=== PATIENT | female | born 1990 | race Caucasian/White ===

== ENCOUNTER 2025-02-16 03:27 | Emergency (ER) | payer MEDICAID, SELFPAY ==
[2025-02-16 03:29] VITALS: BP 95/74; PULSE 74; RESP 18; TEMP 36.5; O2SAT 100; BMI 22.7
[2025-02-16 04:25] LABS: Absolute Lymphocyte Count 2.23 X10^3/uL (0.83-4.51); Absolute Neutrophil Count 3.9 X10^3/uL (2.0-7.7); Basophil# 0.04 X10^3/uL; Basophil% 0.6 % (0-1); Eosinophil# 0.09 X10^3/uL; Eosinophils% 1.3 % (0-5); Hematocrit 38.5 % (37-47); Hemoglobin 13.8 g/dL (12.0-15.0); Lymphocyte # 2.23 X10^3/ul (0.83-4.51); Mean Corp Hgb Conc 35.8 g/dL (32-36); Mean Corpuscular Hgb 31.4 pg (27.0-32.0); Mean Corpuscular Volume 87.5 fL (81-99); Mean Platelet Vol. 11.1 fl (6.2-12.0); Monocyte# 0.53 X10^3/uL; Monocyte% 7.9 % (0-10); NRBC Flagged by Analyzer 0 % (0-5); Neutrophil # 3.85 X10^3/uL (2.7-7.7); Neutrophil % 57.1 % (47-70); Platelet Count 206 K/mm3 (150-450); RBC Distribution Width CV 12.4 % (11.6-14.6); RBC Distribution Width SD 39.8 fl (35.1-43.9); White Blood Count 6.8 K/mm3 (4.4-11.0)
[2025-02-16 04:25] LABS: Internal QC Validated? YES +Cl - CLEAR BKGD; Pregnancy, Urine Negative Negative
[2025-02-16 04:28] VITALS: PULSE 79; RESP 20; O2SAT 98
[2025-02-16 04:46] LABS: Alcohol, Blood (Medical)-Serum < 10.1 mg/dL (<=10.0)
[2025-02-16] MEDS: Ziprasidone IM 20 MG/ML VIAL IM (04:46)
[2025-02-16 04:47] LABS: Amphetamine Urine PRESUMPTIVE POSITIVE (<1000 ng/mL); Barbiturate Urine NEGATIVE (< 200 ng/mL); Benzodiazepine Urine PRESUMPTIVE POSITIVE (< 200 ng/mL); Buprenorphine Urine NEGATIVE (< 200 ng/mL); Cocaine Urine NEGATIVE (< 300 ng/mL); Fentanyl, Urine NEGATIVE; Methadone Urine NEGATIVE (< 300 ng/mL); Opiates Urine NEGATIVE (< 300 ng/mL); Oxycodone, Urine NEGATIVE (< 100 ng/mL); PCP Urine NEGATIVE (< 25 ng/mL); THC Urine PRESUMPTIVE POSITIVE (< 50 ng/mL)
[2025-02-16 04:47] LABS: Anion Gap 12 (5-15); BUN 7 mg/dL (4-19); BUN/Creat Ratio 8.1 RATIO (10-20); Calcium,Total 9.1 mg/dL (7.6-11.0); Carbon Dioxide 22.3 mmol/L (21.0-32.0); Chloride 104 mmol/L (98-108); Creatinine, Serum 0.81 mg/dL (0.70-1.20); EST Glomerular Filtration Rate 99 (>60); Estimated Creatinine Clearance 93.34 ml/min (50-250); Glucose 103 mg/dL (70-99); Potassium 3.2 mmol/L (3.3-5.1); Sodium Level 138 mmol/L (133-145)
[2025-02-16 05:03] VITALS: BP 99/76; PULSE 81; RESP 18; O2SAT 97
--- NOTE | 2025-02-16 05:55 | ED.RN ---
JAY FROM CRISIS CAME AND EVALUATED PT. PT IS TO BE PLACED. CRISIS WILL CALL AND UPDATE WHEN REFERRALS ARE SENT OUT
--- NOTE | 2025-02-16 06:31 | EDS_ITS ---
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 Police were dispatched to her address after they reported three 911 calls over the last 24 hours. The police state that the first 2 calls were short-lived and it was essentially her screaming into the phone and they could not locate her address. However she stayed on the phone longer for the third call and they were able to track her address. When they arrived she was found to be agitated and delusional stating that people were out to get her with black magic. Police states that she is from [place] and has been living with other individuals at the residence for approximately 1 month. They state that they found her prescription medications and they were last filled 30 days ago and are still almost completely full indicating she is not taking her medication as directed. Individuals at the residence also states that she has been awake for almost 4 days and her mental status has been steadily declining. Therefore as she is demonstrating delusional behavior with anitra and conveying that she cannot care for herself especially as she is not taking her medications she was brought to the hospital for medical evaluation and potential psychiatric placement [facility] Medical History ADHD PTSD (post-traumatic stress disorder) Home Medications ?Medication ?Instructions ?Recorded ?Last Taken ?Type NK 02/16/25 Unknown History Allergy/AdvReac Type Severity Reaction Status Date / Time citalopram Allergy Severe Anaphylaxis Verified 02/16/25 03:41 Social History Smoking Status: Unknown if ever smoked ROS [facility] ED Constitutional Constitutional ED: Denies chills or fever(s) Eyes Eyes: Denies change in vision ENT ENT ED: Denies sore throat Cardiovascular Cardiovascular: Denies chest pain or palpitations Respiratory/Chest Respiratory/Chest: Denies cough or dyspnea Gastrointestinal Gastrointestinal: Denies abdominal pain, diarrhea, nausea or vomiting Genitourinary Genitourinary ED: Denies dysuria Musculoskeletal Musculoskeletal: Denies myalgias Integumentary Denies rash Neurologic Neurologic: Denies headache(s) Psychiatric Psychiatric: Denies suicidal ideation or suicidal thoughts Hematologic/Lymphatic Hematologic/Lymphatic: Denies easy bleeding or easy bruising EXAM Physical Exam Const Vital Signs: 02/16/25 03:29 02/16/25 04:28 02/16/25 05:03 Temperature 97.7 F L Temperature Source Oral Pulse Rate 74 79 81 Respiratory Rate 18 20 H 18 Blood Pressure 95/74 99/76 Blood Pressure Mean 81 83 Pulse Ox 100 98 97 Oxygen Delivery Method Room Air Room Air Room Air Positive well nourished and well developed General Appearance ED: well developed; Negative for pallor HEENT Reports dry mucous membranes HEENT Narrative: Normocephalic atraumatic No tongue or lip swelling no oral lesions no airway edema or compromise No secondary findings in the posterior pharynx to suggest infection Mouth ED: Yes dry mucous membranes Mouth: dry mucous membranes Eyes PERRL and EOMs intact bilaterally General Eye ED: Negative for scleral icterus Neck supple Neck Narrative: No nuchal rigidity or meningeal signs Resp normal respiratory effort and clear to auscultation bilaterally Resp Narrative: No nasal flaring retractions tachypnea or accessory muscle use Cardio regular rate and regular rhythm Rate: other Other Details: Regular rate and rhythm without murmurs rubs or gallops Radial and carotid pulses are equal and symmetric GI normal to inspection, nondistended, normoactive bowel sounds, non-tender, non- distended and no masses GI Narrative: No voluntary guarding or rigidity or pulsatile mass Auscultation: normoactive bowel sounds Palpation: soft Extremity normal to inspection Extremity Narrative: No bony deformity or joint effusion No signs of long bone injury No asymmetric edema no pitting edema negative Homans' sign bilaterally Neuro oriented x3 and CN's II-XII intact bilaterally Sensorium / Orientation: alert Psych Psych Narrative: Patient has anxious/tearful/paranoid affect but no reported homicidal or suicidal ideation Mood & Affect: anxious and tearful Skin no rashes or lesions noted and no wounds General Skin Exam: Negative for jaundice or pallor MDM MDM MDM Narrative Medical decision making narrative: Patient arrived to the ER with stable vitals. According to police and EMS she is having paranoid delusions and has demonstrated she cannot care for self based on the fact she is not taking her medication. In the ER the patient has flight of ideas and pressured speech consistent with anitra. Based on her physical exam and history I do feel that her safest and most appropriate option will be admission for medical stabilization of her manic episode and delusions. Therefore a psychiatric screening exam was performed. The patient does not have elevation to the white blood cell count or left shift going against a secondary infection. test is negative going against a potential complication. Patient does not have any alcohol in her system which could contribute to her deranged behavior. There are also no signs of acute kidney injury or clinically significant electrolyte abnormality. The patient's potassium is slightly down at 3.2 however this is not clinically significant but I did attempt to replace it orally but patient refused. The talk screen is positive for methamphetamines benzodiazepines and THC and the polysubstance abuse is most likely driving her anitra and delirium. The presence of these illicit substances within her system however do not preclude medical clearance. Therefore she was medically cleared and the patient was evaluated by crisis center. At this time she is displaying signs of anitra and paranoid delusions based on the fact that she is technically homeless and does not have social support and has not been taking her medications she is also displaying that she is not capable of caring for herself. Therefore a pink slip was filled out and crisis center will work on inpatient psychiatric care. Please note that the patient was medicated with IM Geodon. This was not done because of aggressive behavior/need for chemical restraint but secondary to her anitra and insomnia and need for rest The patient has been medically cleared from an emergency room standpoint and is safe for transfer/placement to a psychiatric center History & Record Review Discussion w/independent historian: Patient Lab Data Attestation: I reviewed the patient's lab results. Labs: Laboratory Results - last 24 hr 02/16/25 02/16/25 04:12 04:16 WBC 6.8 RBC 4.40 Hgb 13.8 Hct 38.5 MCV 87.5 MCH 31.4 MCHC 35.8 RDW Std Deviation 39.8 RDW Coeff of Bee 12.4 Plt Count 206 MPV 11.1 Immature Gran % (Auto) 0.100 Neut % (Auto) 57.1 Lymph % (Auto) 33.0 [place] % (Auto) 7.9 Eos % (Auto) 1.3 Baso % (Auto) 0.6 Absolute Neuts (auto) 3.9 Absolute Lymphs (auto) 2.23 Nucleated RBC % 0 Sodium 138 Potassium 3.2 L Chloride 104 Carbon Dioxide 22.3 Anion Gap 12 BUN 7 Creatinine 0.81 Estim Creat Clear Calc 93.34 Est GFR (MDRD) Non-Af 99 BUN/Creatinine Ratio 8.1 L Glucose 103 H Calcium 9.1 Urine Test Negative Urine Opiates Screen NEGATIVE U Buprenorphine Qual NEGATIVE Ur Oxycodone Screen NEGATIVE Urine Methadone Screen NEGATIVE Urine Fentanyl Screen NEGATIVE Ur Barbiturates Screen NEGATIVE Ur Phencyclidine Scrn NEGATIVE Ur Amphetamines Screen PRESUMPTIVE POSITIVE U Benzodiazepines Scrn PRESUMPTIVE POSITIVE Urine Cocaine Screen NEGATIVE U Cannabinoids Screen PRESUMPTIVE POSITIVE Ethyl Alcohol < 10.1 Management Discussion w/another healthcare provider: 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
[2025-02-16 08:58] VITALS: BP 95/77; PULSE 86; RESP 14; TEMP 36.2; O2SAT 98
== END 2025-02-16 08:59 ==
PROVIDERS: Emergency Provider Emergency Medicine; Visit Provider Emergency Medicine
DX: F31.9 Bipolar disorder, unspecified (principal); F20.9 Schizophrenia, unspecified; F22 Delusional disorders; F19.19 Other psychoactive substance abuse with unspecified psychoactive substance-induced disorder; G47.00 Insomnia, unspecified; F90.9 Attention-deficit hyperactivity disorder, unspecified type; F43.10 Post-traumatic stress disorder, unspecified; R45.1 Restlessness and agitation; Z91.148 Patient's other noncompliance with medication regimen for other reason
CPT/HCPCS: 80048; 80307; 81025; 82077; 85025; 96372; 99285; J3486

== ENCOUNTER 2025-05-08 00:46 | Emergency (ER) | payer MEDICAID, SELFPAY ==
[2025-05-08 00:47] VITALS: BP 122/78; PULSE 63; RESP 16; TEMP 36.7; O2SAT 100; BMI 24.7
--- NOTE | 2025-05-08 01:03 | EDS_ITS ---
HPI History of Present Illness Chief Complaint: Anxiety PFSH PFSH Medical History Vitamin deficiency PCOS (polycystic ovarian syndrome) Irritable bowel syndrome Hives History of frequent headaches Emotional problems Breast lump UTI (urinary tract infection) Back problem Allergies ADHD PTSD (post-traumatic stress disorder) Home Medications ?Medication ?Instructions ?Recorded ?Last Taken ?Type aripiprazole 5 mg tablet (Abilify) 5 mg PO QDAY Unknown History clonazepam 1 mg tablet (Klonopin) 1 mg PO BID 04/22/25 Unknown History dextroamphetamine-amphetamine 20 1 tab PO TID 05/08/25 Unknown History mg tablet hydroxyzine HCl 50 mg tablet 50 mg PO TID PRN anxiety #30 tabs 05/08/25 Unknown Rx Allergy/AdvReac Type Severity Reaction Status Date / Time citalopram Allergy Severe Anaphylaxis Verified 02/16/25 03:41 Family History (Updated 04/22/25 @ 11:56 by Kimberly Mcclain) Other Alcoholism Anesthesia complication Anxiety Arthritis Asthma Breast cancer CVA (cerebral vascular accident) Cervical cancer Depression High cholesterol Hx of blood clots Kidney disease Liver disease Mental disorder Myocardial infarction Parkinsons Psychiatric care Skin cancer Suicide attempt Thyroid disorder Surgical History Hx of appendectomy Social History (Updated 04/22/25 @ 11:57 by Kimberly Mcclain) Smoking Status: Never smoker alcohol intake: never substance use type: marijuana what type of physical activity do you participate in: none EXAM Physical Exam Const Vital Signs: 05/08/25 00:47 Temperature 98.1 F Temperature Source Oral Pulse Rate 63 Respiratory Rate 16 Blood Pressure 122/78 H Blood Pressure Mean 92 Pulse Ox 100 Oxygen Delivery Method Room Air MDM MDM MDM Narrative Medical decision making narrative: HISTORY OF PRESENT ILLNESS: Chief complaint: Anxiety 34-year-old female reports having PTSD, schizophrenia and notes she has not been able to sleep. She states she is out of her anxiety medications. She is having lots of flashbacks. Denies SI, HI, auditory or visual hallucinations. REVIEW OF SYSTEMS: Pertinent positives: Anxiety Pertinent negatives: Chest pain, shortness of breath, headache, vomiting PHYSICAL EXAM: Nursing triage notes reviewed, Vital signs reviewed Constitutional: please see mdm HENT: MMM Eyes: Pupils equal round and reactive to light, Extraocular muscles intact Neck: No stridor, no JVD, full neck ROM Lungs: Clear to auscultation, No wheezing or rales. No increased work of breathing, no conversational dyspnea, no accessory muscle use, no nasal flaring. No respiratory distress noted Heart: Regular rate and rhythm, No murmurs, No rubs and No gallops, 2+ distal pulses (radial, femoral, posterior tibial) in all extremities Abdomen: Soft, there is no tenderness, rigidity, rebound or guarding, no obvious peritoneal signs, no palpable pulsatile abdominal masses, no auscultated abdominal bruit : No CVAT Extremities: No edema Neuro: No new focal neurological deficits, cranial nerves II through XII intact, 5/5 strength in all present extremities. Intact sensation to light touch in all present extremities, 2+ reflexes bilateral patella tendons. Skin: No rash or lesions noted Psych: MEDICAL DECISION MAKING: Chief Complaint: please see HPI External records reviewed: Reviewed prior encounter Factors affecting care: none Social determinants of health: none History obtained from others: Family friend Consults: none MDM Narrative: The patient was HDS, afebrile, non-toxic appearing. Exam benign. Gave clonazepam here. Patient requested test which was ran and was negative. Patient was discharged home with close outpatient psychiatric follow- up. States he has appointment 3 days. Encouraged to keep this appointment to return if symptoms change or worsen specifically for any suicide ideation, homicidal ideation, auditory visual hallucinations ALL IMAGES (IF OBTAINED) HAVE BEEN PERSONALLY REVIEWED AND INTERPRETED BY MYSELF. Urine test negative The patient and/or family, caregivers express understanding. The patient and/or family, caregivers agrees with the plan. Shared decision making: I will have a discussion with the patient and or visitors regarding risk/benefits of further testing or admission. They will be made aware of of the risk/benefits inherent in this decision they will be given the opportunity to voice understanding. Total critical care time today provided was at least 0 minutes. This excludes separately billable procedures. Critical care time (if documented) is secondary to the patient having high probability of clinically significant/life threatening deterioration in the patient's condition which required my urgent intervention. Impression: 1. Anxiety 2. History of schizophrenia Dispo: Discharge home This note was generated with TextualAdsation software. It may contain incorrect words, spelling, and punctuation that were not noted in review of the chart prior to signing. Lab Data Labs: Laboratory Results - last 24 hr 05/08/25 02:00 Urine Test Negative Discharge Plan Triage Chief Complaint: Anxiety ED Provider: Isaias Tarango Dx/Rx/DC Orders Instructions: ED Anxiety Reaction Prescriptions: New hydroxyzine HCl 50 mg tablet 50 mg PO TID PRN (Reason: anxiety) Qty: 30 0RF No Action aripiprazole [Abilify] 5 mg tablet 5 mg PO QDAY clonazepam [Klonopin] 1 mg tablet 1 mg PO BID dextroamphetamine-amphetamine 20 mg tablet 1 tab PO TID Primary Care Provider: Colleen Juan Referrals: Sean Telles, [Med Staff - Hospital Television Rental Clerk] - Activity Restrictions/Additional Instructions: Thank you for trusting us with your care today! Your testing here was negative. No sign of . Please prescribe clonazepam as directed. Please return to the emergency department if your symptoms change or worsen. Please follow with your primary care physician for further outpatient evaluation and management. Print Language: Mauritian Disposition Disposition: Home, Self Care
--- OUTSIDE RECORDS SUMMARY | 2025-05-08 01:28 | XMS RPT_ITS | CCD ---
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 (mass/volume)Ordered By: Joe Vines on 02-16-2025 Urea nitrogen [Mass/Vol] 7 mg/dL 4-19 [facility] Sodium levelOrdered By: Quincy Vines on 02-16-2025 Sodium [Moles/Vol] 138 mmol/L 133-145 [facility] Urine Drug Screen (VISTA)on 02-16-2025 AMPHETAMINES Positive Normal <1000 ng/mL [facility] Comment on above: Result Comment: If c onfirmation testing is needed, a separate order will be required to send out testing to the reference laboratory. Performed By: #### L 500.2500, L501.9100, L505.5000, L100.0100 #### [facility] [address] [place] [address] BARBITIURATES Negative Normal < 200 ng/mL [facility] Comment on above: Performed By: #### L 500.2500, L501.9100, L505.5000, L100.0100 #### [facility] [address] [facility] [address] BENZODIAZIPINE Positive Normal < 200 ng/mL [facility] Comment on above: Result Comment: If c onfirmation testing is needed, a separate order will be required to send out testing to the reference laboratory. Performed By: #### L 500.2500, L501.9100, L505.5000, L100.0100 #### [facility] [address] [place], [address] BUP Ur Drug Scr Negative Normal < 200 ng/mL [facility] Comment on above: Performed By: #### L 500.2500, L501.9100, L505.5000, L100.0100 #### [facility] [address] [place], [address] COCAINE Negative Normal < 300 ng/mL [facility] Comment on above: Performed By: #### L 500.2500, L501.9100, L505.5000, L100.0100 #### [facility] [address] [place], [address] Fentanyl Negative Normal [facility] Comment on above: Performed By: #### L 500.2500, L501.9100, L505.5000, L100.0100 #### [facility] [address] [place], [address] METHADONE Negative Normal < 300 ng/mL [facility] Comment on above: Performed By: #### L 500.2500, L501.9100, L505.5000, L100.0100 #### [facility] [address] [place], [address] OPIATES Negative Normal < 300 ng/mL [facility] Comment on above: Performed By: #### L 500.2500, L501.9100, L505.5000, L100.0100 #### [facility] [address] [place], [address] OXYCODONE Negative Normal < 100 ng/mL [facility] Comment on above: Performed By: #### L 500.2500, L501.9100, L505.5000, L100.0100 #### [facility] [address] [place], [address] PCP Negative Normal < 25 ng/mL [facility] Comment on above: Performed By: #### L 500.2500, L501.9100, L505.5000, L100.0100 #### [facility] [address] [place], [address] THC Positive Normal < 50 ng/mL [facility] Comment on above: Result Comment: If c onfirmation testing is needed, a separate order will be required to send out testing to the reference laboratory. Performed By: #### L 500.2500, L501.9100, L505.5000, L100.0100 #### [facility] [address] [place], [address] Urine benzodiazepine levelOr dered By: Joe Vines on 02-16-2025 Benzodiazepines Ql (U) Positive < 200 ng/mL [facility] Comment on above: If confirmation test ing is needed, a separate order will be required to send out testing to the reference laboratory. Urine cocaine levelOrdered B y: Joe Vines on 02-16-2025 Cocaine Ql (U) Negative < 300 ng/mL [facility] Urine zyois-2-kyisslnwesrpdr abinol (THC) measurementOrdered By: Joe Vines on 02-16-2025 Cannabinoids Screen Ql (U) Positive < 50 ng/mL [facility] Comment on above: If confirmation test ing is needed, a separate order will be required to send out testing to the reference laboratory. Urine phencyclidine (PCP) de tectionOrdered By: Joe Vines on 02-16-2025 Phencyclidine Ql (U) Negative < 25 ng/mL [facility] Urine testOrdered By: Joe Vines on 02-16-2025 HCG ( test) Ql (U) Negative [facility] Comment on above: Very dilute urine sp ecimens, as indicated by a low specificgravity, may not contain food service sales representatives levels of hCG. If is still suspected, a first morning urinespecimen should be collected 48 hours later and tested. White blood cell (WBC) count Ordered By: Joe Vines on 02-16-2025 WBC (Bld) [#/Vol] 6.8 10*3/uL 4.4-11.0 [facility] fentaNYL Screen Ql (U)Ordere d By: Joe Vines on 02-16-2025 Urine Fentanyl Screen Negative [facility] Vital Signs Date Time Vital Sign Value Performing Clinician Faci lity 02-16-2025 08:58-0400 Body temperature 97.2 [degF] Dr. Joe Vines DO Work Phone: [facility] 02-16-2025 08:58-0400 Diastolic blood pressure 77 mm[Hg] Dr. Joe Vines DO Work Phone: [facility] 02-16-2025 08:58-0400 Heart rate 86 /min Dr. Joe Vines DO Work Phone: [facility] 02-16-2025 08:58-0400 Respiratory rate 14 /min Dr. Joe Vines DO Work Phone: [facility] 02-16-2025 08:58-0400 SaO2% (BldA) [Mass fraction] 98 % Dr. Joe Vines DO Work Phone: [facility] 02-16-2025 08:58-0400 Systolic blood pressure 95 mm[Hg] Dr. Joe Vines DO Work Phone: [facility] 02-16-2025 03:29-0400 Body height 167.[address] Joe Vines DO Work Phone: [facility] 02-16-2025 03:29-0400 Body mass index (BMI) [Ratio] 22.7 kg/m2 Dr. Joe Vines DO Work Phone: [facility] 02-16-2025 03:29-04[address] Body weight [address] Joe Vines DO Work Phone: [facility] Encounters Encounter Date Encounter Type Care Provider Facility Start: 02-18-2025 End: 02-19-2025 Emergency department patient visit Facility:[id number] Start: 02-16-2025 End: 02-16-2025 Emergency department patient visit Dr. Joe Vines DO Work Phone: -Emergency Department Work Phone: Plan of Treatment Date Care Activity Detail Author Start: 02-16-2025 [facility] Patient referral [facility] Work Phone: Payers Date Payer Category Payer Self-pay 2025 Unknown [id number] Unknown [id number] Social History Date Type Detail Facility Start: 02-16-2025 Tobacco smoking status NHIS Tobacco smoking consumption unknown (finding) [facility] Start: 02-16-2025 Sex Female (finding) [facility] Start: 1990 Sex Assigned At Female [facility] Discharge summary 02-16-2025 Note Date & Type Note Facility 02-16-2025 Discharge summary Note Date/Time February 16, 2025 6:50am [facility] Medical Records Department [address] [place] [address] Emergency Department Summary 02/16/25 MR#: [id number] Acct: [id number] Name: GENOVEVA REARDON Rep #:[id number] : 1990 34 From: Joe Vines DO PCP: Care Physician,No Primary Status :REG ER Location: ED HPI History of Present Illness Chief Complaint: Mental Health Informant: patient, EMS and police/flare stitcher Narrative Narrative: Patient is a 34-year-old female with reported past medical history of ADHD PTSD and schizophrenia. Police were dispatched to her address after they reported three 911 calls over the last 24 hours. The police state that the first 2 callswere short-lived and it was essentially her screaming into the phone and they could not locate her address. However she stayed on the phone longer for the third call and they were able to track her address. When they arrived she was found to be agitated and delusional stating that people were out to get her with black magic. Police states that she is from [place] and has been living with other individuals at the residence for approximately 1 month. They state that they found her prescription medications and they were last filled 30 days ago and are still almost completely full indicating she is not taking her medication as directed. Individuals at the residence also states that she has been awake for almost 4 days and her mental status has been steadily declining. Therefore as she is demonstrating delusional behavior with anitra and conveying that she cannot care for herself especially as she is not taking her medicationsshe was brought to the hospital for medical evaluation and potential psychiatricplacement [facility] Medical History ADHD PTSD (post-traumatic stress disorder) Home Medications ?Medication ?Instructions ?Recorded ?Last Taken ?Type NK 02/16/25 Unknown History Allergy/AdvReac Type Severity Reaction Status Date / Time citalopram Allergy Severe Anaphylaxis Verified 02/16/25 03:41 Social History Smoking Status: Unknown if ever smoked ROS ROS ED Constitutional Constitutional ED: Denies chills or fever(s) Eyes Eyes: Denies change in vision ENT ENT ED: Denies sore throat Cardiovascular Cardiovascular: Denies chest pain or palpitations Respiratory/Chest Respiratory/Chest: Denies cough or dyspnea Gastrointestinal Gastrointestinal: Denies abdominal pain, diarrhea, nausea or vomiting Genitourinary Genitourinary ED: Denies dysuria Musculoskeletal Musculoskeletal: Denies myalgias Integumentary Denies rash Neurologic Neurologic: Denies headache(s) Psychiatric Psychiatric: Denies suicidal ideation or suicidal thoughts Hematologic/Lymphatic Hematologic/Lymphatic: Denies easy bleeding or easy bruising EXAM Physical Exam Const Vital Signs: 02/16/25 03:29 02/16/25 04:28 02/16/25 05:03 Temperature 97.7 F L Temperature Source Oral Pulse Rate 74 79 81 Respiratory Rate 18 20 H 18 Blood Pressure 95/74 99/76 Blood Pressure Mean 81 83 Pulse Ox 100 98 97 Oxygen Delivery Method Room Air Room Air Room Air Positive well nourished and well developed General Appearance ED: well developed; Negative for pallor HEENT Reports dry mucous membranes HEENT Narrative: Normocephalic atraumatic No tongue or lip swelling no oral lesions no airway edema or compromise No secondary findings in the posterior pharynx to suggest infection Mouth ED: Yes dry mucous membranes Mouth: dry mucous membranes Eyes PERRL and EOMs intact bilaterally General Eye ED: Negative for scleral icterus Neck supple Neck Narrative: No nuchal rigidity or meningeal signs Resp normal respiratory effort and clear to auscultation bilaterally Resp Narrative: No nasal flaring retractions tachypnea or accessory muscle use Cardio regular rate and regular rhythm Rate: other Other Details: Regular rate and rhythm without murmurs rubs or gallops Radial and carotid pulses are equal and symmetric GI normal to inspection, nondistended, normoactive bowel sounds, non-tender, non-distended and no masses GI Narrative: No voluntary guarding or rigidity or pulsatile mass Auscultation: normoactive bowel sounds Palpation: soft Extremity normal to inspection Extremity Narrative: No bony deformity or joint effusion No signs of long bone injury No asymmetric edema no pitting edema negative Homans' sign bilaterally Neuro oriented x3 and CN's II-XII intact bilaterally Sensorium / Orientation: alert Psych Psych Narrative: Patient has anxious/tearful/paranoid affect but no reported homicidal or suicidal ideation Mood & Affect: anxious and tearful Skin no rashes or lesions noted and no wounds General Skin Exam: Negative for jaundice or pallor MDM MDM MDM Narrative Medical decision making narrative: Patient arrived to the ER with stable vitals. According to police and EMS she is having paranoid delusions and has demonstrated she cannot care for self basedon the fact she is not taking her medication. In the ER the patient has flight of ideas and pressured speech consistent with anitra. Based on her physical examand history I do feel that her safest and most appropriate option will be admission for medical stabilization of her manic episode and delusions. Therefore a psychiatric screening exam was performed. The patient does not haveelevation to the white blood cell count or left shift going against a secondary infection. test is negative going against a potential complication. Patient does not have any alcohol in her system which could contribute to her deranged behavior. There are also no signs of acute kidney injury or clinically significant electrolyte abnormality. The patient's potassium is slightly down at 3.2 however this is not clinically significant but I did attempt to replace it orally but patient refused. The talk screen is positive for methamphetamines benzodiazepines and THC and the polysubstance abuse is most likely driving her anitra and delirium. The presence of these illicit substances within her system however do not preclude medical clearance. Therefore she was medically cleared and the patient was evaluated by crisis center. At this time she is displaying signs of anitra and paranoid delusions based on the fact that she is technically homeless and does not have social support and has not been taking her medications she is also displaying that she is not capable of caring for herself. Therefore a pink slip was filled out and crisis center will work on inpatient psychiatric care. Please note that the patient was medicated with IM Geodon. This was not done because of aggressive behavior/need for chemical restraint but secondary to her anitra and insomnia and need for rest The patient has been medically cleared from an emergency room standpoint and is safe for transfer/placement to a psychiatric center History & Record Review Discussion w/independent historian: Patient Lab Data Attestation: I reviewed the patient's lab results. Labs: Laboratory Results - last 24 hr 02/16/25 02/16/25 04:12 04:16 WBC 6.8 RBC 4.40 Hgb 13.8 Hct 38.5 MCV 87.5 MCH 31.4 MCHC 35.8 RDW Std Deviation 39.8 RDW Coeff of Bee 12.4 Plt Count 206 MPV 11.1 Immature Gran % (Auto) 0.100 Neut % (Auto) 57.1 Lymph % (Auto) 33.0 [place] % (Auto) 7.9 Eos % (Auto) 1.3 Baso % (Auto) 0.6 Absolute Neuts (auto) 3.9 Absolute Lymphs (auto) 2.23 Nucleated RBC % 0 Sodium 138 Potassium 3.2 L Chloride 104 Carbon Dioxide 22.3 Anion Gap 12 BUN 7 Creatinine 0.81 Estim Creat Clear Calc 93.34 Est GFR (MDRD) Non-Af 99 BUN/Creatinine Ratio 8.1 L Glucose 103 H Calcium 9.1 Urine Test Negative Urine Opiates Screen NEGATIVE U Buprenorphine Qual NEGATIVE Ur Oxycodone Screen NEGATIVE Urine Methadone Screen NEGATIVE Urine Fentanyl Screen NEGATIVE Ur Barbiturates Screen NEGATIVE Ur Phencyclidine Scrn NEGATIVE Ur Amphetamines Screen PRESUMPTIVE POSITIVE U Benzodiazepines Scrn PRESUMPTIVE POSITIVE Urine Cocaine Screen NEGATIVE U Cannabinoids Screen PRESUMPTIVE POSITIVE Ethyl Alcohol < 10.1 Management Discussion w/another healthcare provider: pick and shovel worker/Case management and Behavioral health Discharge Plan Triage Chief Complaint: Mental Health ED Provider: Joe Vines Dx/Rx/DC Orders Clinical Impression: Paranoid delusion, Bipolar disorder with severe anitra, Polysubstance abuse Prescriptions: No Action NK Primary Care Provider: Care Physician,No Primary Referrals: Care Physician,No Primary [Primary Care Provider] - Print Language: Iraqi Disposition Disposition: Psychiatric Hospital or Unit What to do if you have Problems For any increased pain, shortness of breath, bleeding, nausea or vomiting, chestpain, or any unexpected problems, contact your Primary Care Provider. Call [facility] ([phone]) or report to the closest Emergency Room. Call 911 if necessary. 02/16/25 0650 <Electronically signed by Joe Vines DO> Cosigner Signature (if applicable): CC: No Primary Care Physician ~ Signed [facility] Work Phone: Discharge summary 02-16-2025 Note Date & Type Note Facility 02-16-2025 Discharge summary [facility] Evaluation note Note Date & Type Note Facility Evaluation note No assessment information availa ble [facility] Work Phone: Reason for referral (narrative) Note Date & Type Note Facility Reason for referral (narrative) No reason for referral information available [facility] Work Phone: Chief Complaint and Reason for Visit Chief Complaint Admit Date mental health February 16, 2025 3:2 7am Advance Directives No Advanced Directives Records Found Advance Directive Response Recorded Date/ Time Living Will No February 16, 2025 3:42am Do you have a Healthcare Power of [employer] Laboratory Assistant? No February 16, 2025 3:42am Summary Purpose Family History No Family History Records FoundNo Family History Records Found Additional Source Comments Care Teams (unrecognized sec tion and content) Team Status: Active Member Role Status Dates No Primary Care Physician Primary Care Provider Active Team Status: Inactive Member Role Status Dates Dr. Joe Vines , DO Emergency Provider Active Start: February 16, 2025 End: February 16, 2025 No Primary Care Physician Primary Care Provider Active Start: February 16, 2025 End: February 16, 2025 Goals (unrecognized section and content) Goals may be documented in a n alternate section INFORMATION SOURCE (unrecogn ized section and content) DATE CREATED AUTHOR 02/21/2025 [facility] DATE CREATED AUTHOR AUTHOR'S XUAN DUMONT 04/08/2025 [facility] FOR RECORDS PERTAINING TO PATIENTS WHO ARE OR HAVE BEEN ENROLLED IN A CHEMICAL DEPENDENCY/SUBSTANCEABUSE PROGRAM, SOME INFORMATION MAY BE OMITTED. This clinical summary was aggregated from multiple sources. Caution should be exercised in using it in the provision of clinical care. This summary normalizes information from multiple sources, and as a consequence, information in this document may materially change the coding, format and clinical context of patient data. In addition, data may be omitted in some cases. CLINICAL DECISIONS SHOULD BE BASED ON THE PRIMARY CLINICAL RECORDS. [employer] provides no warranty or guarantee of the accuracy or completeness of information in this document.
[2025-05-08 02:09] LABS: Internal QC Validated? YES +Cl - CLEAR BKGD; Pregnancy, Urine Negative Negative; Record Kit Lot#,Urine Preg 0000947241
[2025-05-08 02:34] VITALS: BP 112/75; PULSE 68; RESP 18; TEMP 36.7; O2SAT 99
== END 2025-05-08 02:41 | disposition home or self-care (01) ==
PROVIDERS: Emergency Provider Emergency Medicine; PCP Nurse Practitioner Family; Visit Provider Emergency Medicine
DX: F41.9 Anxiety disorder, unspecified (principal); Z86.59 Personal history of other mental and behavioral disorders
CPT/HCPCS: 81025; 99282